=== PATIENT | female | born 2000 | race Two or more races ===

== ENCOUNTER 2024-04-28 14:54 | Emergency (ER) | payer OTHER ==
[~2024-04-28] VITALS: Ht 167.6 cm; Wt 61.2 kg
[2024-04-28] MEDS ORDERED: ONDANSETRON HCL 2 MG/ML VIAL ONE (17:12)
[2024-04-28] MEDS ORDERED: ONDANSETRON HCL 2 MG/ML VIAL IV ONE (17:15)
[2024-04-28 17:28] LABS: PH,URINE 5.5 (5.0-8.0); URINE APPEARANCE Clear; URINE BILIRRUBIN Negative (NEGATIVE); URINE BLOOD Negative; URINE COLOR Yellow; URINE GLUCOSE Negative (NEGATIVE); URINE LEUKOCYTE Negative; URINE NITRATE Negative; URINE PROTEIN Negative (NEGATIVE); URINE UROBILINOGEN 0.2 E.U./dl
[2024-04-28 17:32] LABS: URINE BACTERIA 555.4 uL (0.0-1933); URINE EPITHELIAL CELLS 4.4 uL (0.0-38.8); URINE RBC 2.2 uL (0.0-20.8); URINE WBC 4.4 uL (0.0-23.2)
[2024-04-28 17:33] LABS: HEMATOCRIT 38.8 % (36.0-45.00); HEMOGLOBIN 13.1 g/dL (12.0-15.00); MEAN CELL VOLUME 93.2 fL (80.00-100.00); MEAN CORPUSCULAR HEMOGLOBIN 31.6 pg (27.00-32.0); MEAN CORPUSCULAR HGB CONC 33.9 g/dl (32.0-36.0); PLATELET COUNT 190 K/uL (150-450); RED BLOOD COUNT 4.16 M/uL (4.00-6.00); RED CELL DISTRIBUTION WIDTH 13.3 % (11.5-14.5)
[2024-04-28 17:47] LABS: URINE KETONE 40 (NEGATIVE)
[2024-04-28 18:23] LABS: ALBUMIN 4.8 gm/dL (3.4-5.0); BILIRUBIN TOTAL 0.99 mg/dL (0.3-1.2); CREATININE SERUM 0.71 mg/dL (0.55-1.02); GFR 102.94; GLOBULINA 3.6 G/DL (2.4-3.5); POTASSIUM 3.72 mEq/L (3.5-5.1); TOTAL PROTEIN 8.4 gm/dL (6.4-8.2)
== END 2024-04-29 02:33 | disposition home or self-care (01) ==
LOC: ER 14:57
PROVIDERS: Emergency Medicine
DX: K52.9 Noninfective gastroenteritis and colitis, unspecified (principal); R10.2 Pelvic and perineal pain; Z97.5 Presence of (intrauterine) contraceptive device